=== PATIENT | female | born 1960 | race Caucasian/White ===

== ENCOUNTER → 2017-09-08 | Outpatient (CLI) | payer BC ==
[~2017-09-08] MED LIST: ALBU2.5V36 IH; CHOL200025 PO; ESOM40CA42 PO; ESTR0.5T18 PO; ESTR1PAT3 TD; ETAN50PE3 SQ; GLUCOSAMINE PO; HYDR-3083 PO; HYDR-4309 PO; IOPAMIDOL 76% 75 ML INFUS BTL 75 ML ONE; LEFL20TA6 PO; LOR5/325 PO; LOSA-51 PO; LOSA100T67 PO; LOSA25TA50 PO; MAGN250T34 PO; MULT-1335 PO; NS 0.9% 20 ML SDV 60 ML ONE; PRED20TA6 PO; VITA150T2 PO; ZINC10LO9 PO; ZINC50TA43 PO; [UNRECOGNIZED DRUG - CODE] PO; [UNRECOGNIZED DRUG - OTHER]; [UNRECOGNIZED DRUG - OTHER]
--- NOTE | 2017-09-08 10:19 | RADIOLOGY IMAGING REPORT ---
FACILITY: [facility] PATIENT NAME: Monica Amato : 1960 MR: [id number] V: [id number] EXAM DATE: ORDERING PHYSICIAN: YING LE TECHNOLOGIST: [place] [facility] [place] Monica Amato : 1960 Visit/Account:[id number] Date of Sevice: 09/08/2017 ABDOMEN/PELVIS W/WO CONTRAST HISTORY: Groin and epigastric pain TECHNIQUE: Axial images acquired through the abdomen/pelvis both with and without IV contrast.. Alejandra nal and sagittal reformatting also performed. Dose Lowering Technique One of the following dose optimization techniques was utilized in the performance of this exam: Autom ated exposure control; adjustment of the mA and/or kV according to the patient's size; or use of an i terative reconstruction technique. Specific details can be referenced in the facility's radiology C T exam operational policy. CONTRAST: 75 mL Isovue-370 COMPARISON: March 26, 2016 FINDINGS: Visualized lung bases: There is a 2 mm noncalcified nodule inferior aspect right middle lobe best se en on image one series 5 is a 3 mm noncalcified intrafissural nodule abutting the minor fissure on th e right best seen on image eight there is a 5 mm noncalcified nodule medial aspect of the right lower lobe best seen on image 20. There is a 3 mm noncalcified nodule posterior aspect the left lower lob e best seen on image 52 Hepatobiliary: There is diffuse hepatic steatosis and a small area of focal fatty sparing adjacent t o the falciform ligament Spleen: Negative. Adrenals: Negative. Pancreas: Negative. Kidneys ureters and bladder: Negative. Genitalia: Uterus not identified GI: Negative. Vessels/spaces/nodes: Negative. Bones/soft tissues: There Is a small umbilical hernia containing fat. There is also a ventral hernia in the midline of the upper abdomen containing fat. The hernia opening measures 3.5 cm in diameter Additional findings: None pertinent. IMPRESSION: There is a small umbilical hernia containing fat There is a ventral hernia in the midline of the upper abdomen also containing fat with the hernia ope chadwick measuring 3.5 cm in diameter Diffuse hepatic steatosis Several noncalcified pulmonary nodules measuring up to 5 mm the current Fleischner Society recommenda tions are as follows For multiple nodules measuring less than 6 mm, in a low risk patient (minimal or absent smoking history, no history of malignancy), no routine followup is recommended. In a high ris k patient (smoking or malignancy history), optional 12 month followup can be obtained. Report Dictated By: Nikky Zuniga MD at 09/08/2017 10:01 AM Report E-Signed By: Nikky Zuniga MD at 09/08/2017 10:14 AM WSN:[email or web address]
== END ==
LOC: CT 06:54
PROVIDERS: ATTEND Nurse Practitioner Family
DX: K42.9 Umbilical hernia without obstruction or gangrene (principal); K43.9 Ventral hernia without obstruction or gangrene; K76.0 Fatty (change of) liver, not elsewhere classified; R91.8 Other nonspecific abnormal finding of lung field
CPT/HCPCS: 74178; J7050; Q9967

== ENCOUNTER → 2017-09-22 | Outpatient (CLI) | payer BC ==
[~2017-09-22] MED LIST changes: +NS 0.9% 20 ML SDV 40 ML ONE; -NS 0.9% 20 ML SDV 60 ML ONE
--- NOTE | 2017-09-22 15:32 | RADIOLOGY IMAGING REPORT ---
FACILITY: [facility] - [place] PATIENT NAME: Monica Amato : 1960 MR: [id number] V: [id number] EXAM DATE: ORDERING PHYSICIAN: YING LE TECHNOLOGIST: Location: [facility] - [place] Patient: Monica Amato : 1960 Visit/Account:[id number] Date of Sevice: 09/22/2017 CHEST W CONTRAST History: Multiple pulmonary nodules, history of melanoma TECHNIQUE: Contiguous axial images were performed through the chest to the level of the adrenal gla nds following the administration of IV contrast. Coronal and sagittal reformatting was also perform ed. Dose Lowering Technique One of the following dose optimization techniques was utilized in the performance of this exam: Autom ated exposure control; adjustment of the mA and/or kV according to the patient's size; or use of an i terative reconstruction technique. Specific details can be referenced in the facility's radiology C T exam operational policy. Contrast: 75 mL Isovue-370 COMPARISON STUDIES: CT abdomen and pelvis September 08, 2017. Lungs / Pleura: There Is a 2 mm calcified nodule anterior aspect right upper lobe best seen on image 26 of series 3. There are several intrafissural nodules abutting the minor fissure on the right measuring up to 4 mm. the previously noted 5 mm noncalcified nodule medial aspect the right lower lobe appears smaller now measuring 3 mm and is best seen on image 48. There is a 3 mm nodule posterior aspect left lower lobe best seen on image 61. there is a 4 mm calcified nodule posterior medial left lower lobe best seen on image 64. No evidence of pleural effusions Mediastinum/nodes: negative. Heart and vessels: negative. Musculoskeletal / Body wall: Spondylotic changes of the thoracic spine. Incompletely imaged are po stsurgical changes of the cervical spine Upper abdomen: Diffuse hepatic steatosis IMPRESSION: For multiple pulmonary nodules as described above. Some of these appear to be calcified there for th e noncalcified nodules could represent noncalcified granulomas. Metastatic disease not entirely excl uded given the clinical history of melanoma. The previously noted 5 mm noncalcified nodule in the ri ght lower lobe appears smaller now measuring 3 mm. Maximum nodule size at this time was 4 mm. The c urrent Fleischner Society recommendations are as follows For multiple nodules measuring less than 6 m m, in a low risk patient (minimal or absent smoking history, no history of malignancy), no routine fo llowup is recommended. In a high risk patient (smoking or malignancy history), optional 12 month foll owup can be obtained. Diffuse hepatic steatosis Report Dictated By: Nikky Zuniga MD at 09/22/2017 3:18 PM Report E-Signed By: Nikky Znuiga MD at 09/22/2017 3:28 PM WSN:[email or web address]
== END ==
LOC: CT 01:54
PROVIDERS: ATTEND Nurse Practitioner Family
DX: R91.8 Other nonspecific abnormal finding of lung field (principal); K76.0 Fatty (change of) liver, not elsewhere classified
CPT/HCPCS: 71260; J7050; Q9967

== ENCOUNTER 2017-10-22 01:39 | Observation (INO) | payer BC ==
[2017-10-19 08:59] LABS: PLATELET COUNT, AUTOMATED 298 K/uL (150-450)
--- NOTE | 2017-10-19 09:05 | EKG ---
FACILITY: [facility] PATIENT NAME: KALYAN MONTGOMERY : [id number] MR: [id number] V: [id number] EXAM DATE: ORDERING PHYSICIAN: TEE ESTRELLA TECHNOLOGIST: YARELIS Samaniego Reason : PRE-OP Blood Pressure : / mmHG Vent. Rate : 061 BPM Atrial Rate : 061 BPM P-R Int : 158 ms QRS Dur : 100 ms QT Int : 426 ms P-R-T Axes : 052 037 055 degrees QTc Int : 428 ms Normal sinus rhythm Normal ECG When compared with ECG of 24-OCT-2014 09:25, No significant change was found Confirmed by JOHANA HEWITT ([id number]) on 10/20/2017 4:07:58 AM Referred By: JULIUS Confirmed By:JOHANA HEWITT
--- NOTE | 2017-10-19 11:38 | RADIOLOGY IMAGING REPORT ---
FACILITY: [facility] - [place] PATIENT NAME: Monica Amato : 1960 MR: [id number] V: [id number] EXAM DATE: ORDERING PHYSICIAN: JOHANA MADRID TECHNOLOGIST: Location: [facility] - [place] Patient: Monica Amato : 1960 Visit/Account:[id number] Date of Sevice: 10/19/2017 Exam type: CERVICAL SPINE 2 OR 3 VIEW History: Rheumatoid arthritis, preop Comparison: None. Findings: Neutral, flexion and extension lateral views of cervical spine reveal no abnormal motion at C1-2. Th ere are postsurgical changes from anterior fusion at C4-5 and and C5-6. There is moderate disc space narrowing at C6-7 IMPRESSION: 1. No abnormal motion identified at C1-2 Report Dictated By: Nikky Zuniga MD at 10/19/2017 11:32 AM Report E-Signed By: Nikky Zuniga MD at 10/19/2017 11:34 AM WSN:[email or web address]
[~2017-10-22] VITALS: Ht 165.1 cm; Wt 90.3 kg
[2017-10-22] VITALS (14 sets, daily range): BP systolic 101–161; BP diastolic 68–109
[~2017-10-22 01:39] MED LIST changes: -IOPAMIDOL 76% 75 ML INFUS BTL 75 ML ONE; -NS 0.9% 20 ML SDV 40 ML ONE
[2017-10-22] MEDS ORDERED: ROPIVACAINE 0.5% 20 ML VIAL ONE (07:23)
[2017-10-22] MEDS ORDERED: ceFAZolin(*) 2GM/D5W 50ML 50 ML IVPB ONE (09:15)
[2017-10-22] MEDS ORDERED: NORMOSOL R SOLN(*) 1000 ML BAG 1,000 ML IV PRN (09:15)
[2017-10-22] MEDS ORDERED: LIDOCAINE/SOD BICARB 8.4% SYR ID ONE (09:15)
[2017-10-22] MEDS ORDERED: MIDAZOLAM 2 MG/2 ML VIAL IVP PRN (09:15)
[2017-10-22] MEDS ORDERED: fentaNYL CITR 100 MCG/2 ML AMP ONE ×3 (11:58→15:28)
[2017-10-22] MEDS ORDERED: LIDOCAINE MPF 1% 5 ML VIAL ONE (12:00)
[2017-10-22] MEDS ORDERED: ROCURONIUM BROM 10 MG/ML 10 ML ONE (12:00)
[2017-10-22] MEDS ORDERED: ONDANSETRON 4 MG/2 ML VIAL ONE (12:00)
[2017-10-22] MEDS ORDERED: PROPOFOL EMUL(*) 10MG/ML 20 ML 20 ML ONE (12:00)
[2017-10-22] MEDS ORDERED: DEXAMETHASONE SOD PHOS 10MG/ML ONE (12:00)
[2017-10-22] MEDS ORDERED: GLYCOPYRROLATE 0.2 MG/ML SDV ONE (12:45)
[2017-10-22] MEDS ORDERED: SUGAMMADEX SOD 500 MG/5 ML SDV ONE (14:52)
[2017-10-22] MEDS ORDERED: HYDROmorphone HCL 2 MG/ML SDV ONE (15:30)
[2017-10-22] MEDS ORDERED: NS(*) 0.9% 1000 ML BAG 1,000 ML IV PRN (15:40)
[2017-10-22] MEDS ORDERED: MORPHINE 2 MG/ML SYR IVP PRN (15:40)
[2017-10-22] MEDS ORDERED: ONDANSETRON 4 MG/2 ML VIAL IVP PRN (15:40)
[2017-10-22] MEDS ORDERED: FLUSH 10 ML SYR IVP PRN (15:40)
--- NOTE | 2017-10-22 15:40 | Post Operative Progress Note ---
Post Operative Progress Note Date: Oct 22, 2017 Time: 15:26 Surgeon: Emily Dictation number: [id number] Anesthesia: GETA by Dr. Ramos Pre-Op Diagnosis: Ventral Hernia Umbilical Hernia Post-Op Diagnosis: CHRIS Findings: C/W dx Procedure(s): Robotic UH and VH repair, both with mesh Specimen Removed:(May be N/A): None Complications: None Fluids: See anesthesia record Estimated Blood Loss: Minimal Date OP Note Dictated: Oct 22, 2017 Time OP Note Dictated: 15:28 JOHANA MADRID MD Oct 22, 2017 15:40
[2017-10-22] MEDS ORDERED: KETOROLAC 30 MG/ML VIAL ONE (15:46)
[2017-10-22] MEDS ORDERED: ACETAMINOPHEN(*)1000 MG/100 ML 100 ML IVPB ONE ×2 (15:46→16:00)
[2017-10-22] MEDS ORDERED: HYDROmorphone PCA 6 MG/30 ML IV PRN (15:50)
[2017-10-22] MEDS ORDERED: NALOXONE HCL 0.4 MG/ML VIAL IVP PRN (15:50)
[2017-10-22] MEDS ORDERED: KETOROLAC 30 MG/ML VIAL IVP ONE (16:00)
[2017-10-22] MEDS ORDERED: PROMETHAZINE 25 MG/ML 1 ML AMP ONE (16:02)
[2017-10-22] MEDS: NS(*) 0.9% 1000 ML BAG 1,000 ML IV SCH ×2 (18:15→21:43)
[2017-10-22] MEDS: cefOXitin/DEX(*) 1GM/50ML PREM 50 ML IVPB SCH (18:39)
[2017-10-22] MEDS: KETOROLAC 30 MG/ML VIAL IVP SCH (20:45)
[2017-10-22] MEDS: FAMOTIDINE 20 MG TAB PO SCH (20:45)
[2017-10-22] MEDS: DOCUSATE SODIUM 100 MG CAP PO SCH (20:45)
--- NOTE | 2017-10-22 20:58 | OPERATIVE REPORT 1 ---
EVENT DATE: October 22, 2017 SURGEON: Tl Diaz MD ANESTHESIOLOGIST: Karthik Ramos MD ANESTHESIA: General endotracheal anesthesia. PREOPERATIVE DIAGNOSES 1. Ventral hernia. 2. Umbilical hernia. POSTOPERATIVE DIAGNOSES 1. Ventral hernia. 2. Umbilical hernia. PROCEDURES PERFORMED Robotic umbilical and ventral hernia repair, both with mesh. COMPLICATIONS None. CONDITION Stable. BLOOD LOSS Minimal. INDICATIONS This is a 57-year-old female who was referred to my office with an umbilical hernia and a ventral hernia, both seen on CT scan. She was requesting to have them repaired. DESCRIPTION OF PROCEDURE The patient was brought to the operating room and placed supine on the operating table. General endotracheal anesthesia was administered. Her abdomen was prepped and draped in a sterile fashion. A timeout was completed. I injected the left subcostal skin with 0.5% ropivacaine plain and made a transverse 8 mm incision. I then used a Veress needle, inserted it into the abdomen, and insufflated the abdomen to a pressure of 15 mmHg. I used an 8 mm robotic optical trocar with a 5 mm camera in it and inserted the first trocar into the insufflated abdomen without problems. I then installed the robotic camera and inserted two more 8 mm ports on the left side, one in the mid abdomen and one down in the left lower quadrant. I then docked the robot and then installed the instruments. I identified the hernias and divided the peritoneum around each of the hernias, stripped the peritoneum and the hernia contents out of the hernias, and cleaned off the fascia all the way around. I then closed each defect with V-Loc absorbable sutures and then placed C-QUR omega-3 coated mesh, a 7 cm round mesh around the epigastric ventral hernia and sewed this into place with V-Loc running sutures, and then a 2.5 cm round piece of C-QUR omega-3 coated mesh on the umbilical hernia site and sewed this in with V-Loc. I then reapproximated the peritoneum overlying the mesh on both of these. I then removed the robotic instruments, undocked the robot, desufflated the abdomen, and removed the ports. I then closed the skin at each port site with a 4-0 Monocryl subcuticular suture. Each incision was then covered with Dermabond. The patient was awakened and extubated in the operating room and transported to the recovery room in stable condition having tolerated the procedure without any apparent problems. MTDD
[2017-10-22] MEDS ORDERED: ACETAMINOPHEN(*)1000 MG/100 ML 100 ML IVPB SCH (22:00)
[2017-10-22] MEDS: ACETAMINOPHEN(*)1000 MG/100 ML 100 ML IVPB SCH (23:38)
[2017-10-23] VITALS: BP 108/69
[2017-10-23] MEDS: KETOROLAC 30 MG/ML VIAL IVP SCH ×3 (03:50→15:41)
[2017-10-23] MEDS: cefOXitin/DEX(*) 1GM/50ML PREM 50 ML IVPB SCH ×3 (03:51→20:18)
[2017-10-23] MEDS: ACETAMINOPHEN(*)1000 MG/100 ML 100 ML IVPB SCH ×2 (06:17→12:07)
[2017-10-23 07:49] VITALS: BP 148/89
[2017-10-23] MEDS ORDERED: NS(*) 0.9% 1000 ML BAG 1,000 ML IV SCH (08:00)
--- NOTE | 2017-10-23 08:03 | General Surgery Progress Note ---
Subjective Progress Notes Subjective Feeling better than yesterday. Still too much pain to tolerate PO meds. Was up and walking the halls overnight. Physical Exam Vital Signs Date Time Temp Pulse Resp B/P (MAP) Pulse Ox O2 Delivery O2 Flow Rate FiO2 10/23/17 07:49 98.2 62 16 148/89 (108) 98 Nasal Cannula 1.0 General Appearance: Alert, Awake, No Acute Distress, Afebrile GI: Other (Soft, diffuse expected postop TTP, incisions all look good.) Extremities: Warm, Perfused Result Diagram: 10/19/17 0852 Assessment and Plan Problems: (1) Ventral hernia Status: Chronic Assessment & Plan: 10/23/17: POD#1 s/p robotic UH/VH repair with mesh x2. Doing well. Still with a lot of pain. Will continue current pain control regimen. Convert to PO when pain decreases. (2) Umbilical hernia Status: Chronic Condition Stable. Time Spent: < 30 min Exam Sepsis Risk: No Definite Risk Problem Qualifiers (1) Ventral hernia: Obstruction and gangrene presence: without obstruction or gangrene Qualified Codes: K43.9 - Ventral hernia without obstruction or gangrene (2) Umbilical hernia: Obstruction and gangrene presence: without obstruction or gangrene Qualified Codes: K42.9 - Umbilical hernia without obstruction or gangrene JOHANA MADRID MD Oct 23, 2017 08:03
[2017-10-23] MEDS: LOSARTAN POTASSIUM 50 MG TAB PO SCH (08:47)
[2017-10-23] MEDS: ESTRADIOL 0.5 MG TABLET PO SCH (08:47)
[2017-10-23] MEDS: FAMOTIDINE 20 MG TAB PO SCH ×2 (08:47→20:17)
[2017-10-23] MEDS: DOCUSATE SODIUM 100 MG CAP PO SCH ×2 (08:47→20:17)
[2017-10-23 10:30] VITALS: BP 149/86
[2017-10-23 15:00] VITALS: BP 150/88
[2017-10-23 15:47] VITALS: Ht 165.1 cm; Wt 90.3 kg
[2017-10-23] MEDS: IBUPROFEN 200 MG TAB PO PRN (17:48)
[2017-10-23 19:58] VITALS: BP 166/87
[2017-10-23 23:19] VITALS: BP 133/84
[2017-10-24] MEDS: IBUPROFEN 200 MG TAB PO PRN ×2 (00:49→07:07)
[2017-10-24 03:34] VITALS: BP 150/88
[2017-10-24] MEDS: cefOXitin/DEX(*) 1GM/50ML PREM 50 ML IVPB SCH (03:43)
[2017-10-24 07:13] VITALS: BP 145/85
[2017-10-24] MEDS: LOSARTAN POTASSIUM 50 MG TAB PO SCH (09:23)
[2017-10-24] MEDS: DOCUSATE SODIUM 100 MG CAP PO SCH (09:23)
[2017-10-24] MEDS: FAMOTIDINE 20 MG TAB PO SCH (09:23)
[2017-10-24] MEDS: ESTRADIOL 0.5 MG TABLET PO SCH (09:23)
[2017-10-24] MEDS ORDERED: PER PO (09:34)
[2017-10-24] MEDS ORDERED: DOCU-202 PO (09:34)
--- NOTE | 2017-10-24 09:37 | Short(Outpt) Discharge Summary ---
Discharge Summary Reason for Hosp/Final Diag: (1) Ventral hernia Status: Chronic Hospital Course & Plan: 10/23/17: POD#1 s/p robotic UH/VH repair with mesh x2. Doing well. Still with a lot of pain. Will continue current pain control regimen. Convert to PO when pain decreases. 10/24/17: POD#2. Doing much better. Pain controlled with PO meds that we converted her to last evening. Pt wishes to go home. Will d/c to home. (2) Umbilical hernia Status: Chronic Departure Discharge to: Home, Self Care Discharge Instructions Home Meds Active Scripts Oxycodone/Acetaminophen (OXYCODONE/ACETAMINOPHEN 5MG/325 MG) 5 Mg/325 Mg Tab, 1- 2 TAB PO Q4H Y for PAIN, #40 TAB 0 Refills Prov:JOHANA MADRID MD 10/24/17 Docusate Sodium (DOCUSATE SODIUM) 100 Mg Capsule, 1 CAP PO BID, #30 CAPSULE 0 Refills Prov:JOHANA MADRID MD 10/24/17 Esomeprazole Magnesium (NEXIUM) 40 Mg Capsule.dr, 1 TAB PO QDAY, #60 CAP 0 Refills Take 1 tablet 1/2 hour before breakfast Prov:JOHANA MADRID MD 10/13/17 Reported Medications Losartan Potassium (LOSARTAN POTASSIUM) 100 Mg Tablet, 100 MG PO QDAY 11/05/16 Etanercept (ENBREL) 50 Mg/1 Ml Pen.injctr, 50 MG SQ QWEEKF 04/23/16 Estradiol (ESTRACE) 0.5 Mg Tablet, 0.5 MG PO 05/16/14 Follow up Referrals: General Surgery - 11/04/17 @ Surgery, General with Johana Madrid Md You have a follow up appointment scheduled with Dr. Madrid on 11/04/17, at 2: 15pm. Diet: Regular Activity: No Heavy Lifting Special Instructions: You may shower or bath as desired. Do not perform any activity that involves straining or lifting more than 10 pounds for 6 weeks after surgery. Problem Qualifiers (1) Ventral hernia: Obstruction and gangrene presence: without obstruction or gangrene Qualified Codes: K43.9 - Ventral hernia without obstruction or gangrene (2) Umbilical hernia: Obstruction and gangrene presence: without obstruction or gangrene Qualified Codes: K42.9 - Umbilical hernia without obstruction or gangrene JOHANA MADRID MD Oct 24, 2017 09:37
== END 2017-10-24 09:32 | disposition home or self-care (01) ==
LOC: OR 01:39 → MED 16:35
PROVIDERS: ADMIT Surgery; ATTEND Surgery
DX: K43.9 Ventral hernia without obstruction or gangrene (principal); K42.9 Umbilical hernia without obstruction or gangrene
CPT/HCPCS: 36415; 49652; 72040; 85025; 93005; C1781; G0378; J0131; J0694; J1100; J1170; J1885; J2001; J2250; J2405; J2550; J2704; J2795; J3010; J3490; J7030; S2900; J0690

== ENCOUNTER → 2018-06-11 | Outpatient (CLI) | payer BC ==
[2017-10-23 15:47] VITALS: BMI 33.1
[~2018-06-11] MED LIST changes: +DOCU-202 PO; -HYDR-4309 PO; +HYDR-653 PO; -LOSA100T67 PO; +LOSA100T69 PO; -LOSA25TA50 PO; +LOSA25TA52 PO; +PER PO
--- NOTE | 2018-06-11 17:35 | RADIOLOGY IMAGING REPORT ---
FACILITY: PATIENT NAME: Monica Amato : 1960 MR: [id number] V: [id number] EXAM DATE: ORDERING PHYSICIAN: YING LE TECHNOLOGIST: Location: [facility] - [place] Patient: Monica Amato : 1960 Visit/Account:[id number] Date of Sevice: 06/11/2018 EXAMINATION: ARTERIAL LOWER EXT RIGHT HISTORY: Numbness. COMPARISON: None. TECHNIQUE: Color-flow and spectral waveforms were assessed on the right lower extremity arteries. FINDINGS: RIGHT LOWER EXTREMITY: On the color-flow images there is no significant focal stenosis. Mild calcified plaque is seen at th e dorsalis pedis without significant stenosis. There are triphasic or biphasic waveforms throughout t he right lower extremity. Peak systolic velocities in the right lower extremity in centimeters per second are as follows: Common femoral 93 cm\s, triphasic Proximal superficial femoral 59 cm\s, triphasic Mid superficial femoral 77 cm\s, triphasic Distal superficial femoral 68 cm\s, triphasic Proximal popliteal 37 cm\s, triphasic Distal popliteal 45 cm\s, biphasic Anterior tibial 50 cm\s, biphasic Proximal posterior tibial 47 cm\s, biphasic Mid posterior tibial 56 cm\s, biphasic Distal posterior tibial 55 cm\s, biphasic Peroneal 33 cm\s, biphasic Dorsalis pedis 74 cm\s, biphasic IMPRESSION: 1. No significant arterial stenosis in the right lower extremity arteries. Report Dictated By: Kai Braden MD at 06/11/2018 5:21 PM Report E-Signed By: Kai Braden MD at 06/11/2018 5:32 PM WSN:[id number]
== END ==
LOC: US 15:32
PROVIDERS: ATTEND Nurse Practitioner Family
DX: R10.2 Pelvic and perineal pain (principal); M79.604 Pain in right leg

== ENCOUNTER 2018-06-22 10:44 | Outpatient (RCR) | payer BC ==
[2017-10-23 15:47] VITALS: BMI 33.1
[2018-06-28] MEDS ORDERED: IOPAMIDOL 76% 75 ML INFUS BTL 75 ML ONE (07:57)
--- NOTE | 2018-06-28 08:46 | RADIOLOGY IMAGING REPORT ---
FACILITY: [facility] - [place] PATIENT NAME: Monica Amato : 1960 MR: [id number] V: [id number] EXAM DATE: ORDERING PHYSICIAN: YING LE TECHNOLOGIST: Location: [facility] [place] Patient: Monica Amato : 1960 Visit/Account:[id number] Date of Sevice: 06/28/2018 EXAMINATION: Abdomen and pelvis CT with contrast HISTORY: Right groin pain, leg pain, history of hysterectomy, hernia repair. TECHNIQUE: CT was performed through the abdomen and pelvis following injection of iodinated intrave nous contrast. Sagittal and coronal MPR reformatted images were generated. 75 mL isovue 370 injected . One of the following dose optimization techniques was utilized in the performance of this exam: autom ated exposure control; adjustment of the mA and/or kV according to patient size; or use of iterative reconstruction technique. Specific details can be referenced in the facility's radiology CT exam ope rational policy. COMPARISON: September 08, 2017 FINDINGS: Lower chest: Unchanged approximate 3 mm right middle lobe nodule, axial image two series 3. Addition al 4 mm unchanged left lower lobe nodule, image 16 series 3. Spleen: Normal. Adrenal glands: Normal. Pancreas: Normal. Kidneys: Normal. Gallbladder: Normal. Liver: Unchanged diffuse hepatic steatosis. Vessels: Normal for age. Lymph node assessment: Normal. Bowel including small bowel, colon and appendix: Normal stomach, normal small bowel, appendix not vis ualized, a few colonic diverticula without diverticulitis, otherwise unremarkable colon. Peritoneum / retroperitoneum / mesentery: Normal. Pelvic structures: Normal bladder, absent uterus and normal rectum. No pelvic fluid or adenopathy . Body wall: Previously seen midline ventral fat-containing hernia is no longer present. Previously se en fat-containing umbilical hernia is no longer present. Musculoskeletal: No fracture or osseous destruction. IMPRESSION: 1. Interval surgical repair of the previously seen fat-containing midline ventral hernia and fat-con taining umbilical hernia. 2. No apparent acute finding. 3. Minimal colonic diverticulosis without diverticulitis. 4. Unchanged hepatic steatosis. 5. A few unchanged sub-5 mm pulmonary nodules which are statistically postinflammatory. Report Dictated By: Aram Reyes MD at 06/28/2018 8:29 AM Report E-Signed By: Aram Reyes MD at 06/28/2018 8:42 AM VENKATAN:MARQUISE
== END 2018-06-28 18:00 | disposition home or self-care (01) ==
LOC: CT 10:44
PROVIDERS: ATTEND Nurse Practitioner Family
DX: R10.2 Pelvic and perineal pain (principal); M79.604 Pain in right leg
CPT/HCPCS: 36415; 74177; 82565; Q9967

== ENCOUNTER → 2018-08-23 | Outpatient (CLI) | payer BC ==
[2017-10-23 15:47] VITALS: BMI 33.1
[~2018-08-23] MED LIST changes: -LOSA100T69 PO; +LOSA100T75 PO; -LOSA25TA52 PO; +LOSA25TA57 PO
--- NOTE | 2018-08-23 12:10 | RADIOLOGY IMAGING REPORT ---
FACILITY: [facility] PATIENT NAME: Monica Amato : 1960 MR: [id number] V: [id number] EXAM DATE: ORDERING PHYSICIAN: YING LE TECHNOLOGIST: Location: [facility] - [place] Patient: Monica Amato : 1960 Visit/Account:[id number] Date of Sevice: 08/23/2018 Technique: ANKLE 3 VIEW MIN RIGHT HISTORY: Right ankle injury Comparison studies: None FINDINGS: There is no acute fracture. The alignment of the ankle mortise is maintained. No ankle tanesha int effusion. IMPRESSION: 1. No acute osseous process. Report Dictated By: Jaxon Harris DO at 08/23/2018 12:05 PM Report E-Signed By: Jaxon Harris DO at 08/23/2018 12:06 PM WSN:[email or web address]
== END ==
LOC: RAD 11:05
PROVIDERS: ATTEND Nurse Practitioner Family
DX: S93.431A Sprain of tibiofibular ligament of right ankle, initial encounter (principal)

== ENCOUNTER → 2018-10-26 | Outpatient (CLI) | payer BC ==
[2017-10-23 15:47] VITALS: BMI 33.1
[2018-10-26 10:49] LABS: PLATELET COUNT, AUTOMATED 354 K/uL (150-450)
== END ==
LOC: LAB 10:34
PROVIDERS: ATTEND Nurse Practitioner Family
DX: E87.8 Other disorders of electrolyte and fluid balance, not elsewhere classified (principal)
CPT/HCPCS: 36415; 82040; 82247; 82310; 82374; 82435; 82565; 82947; 84075; 84132; 84155; 84295; 84450; 84460; 84520; 85025

== ENCOUNTER → 2018-12-15 | Outpatient (CLI) | payer BC ==
[2017-10-23 15:47] VITALS: BMI 33.1
[2018-12-15 12:27] LABS: PLATELET COUNT, AUTOMATED 361 K/uL (150-450)
--- NOTE | 2018-12-15 14:30 | RADIOLOGY IMAGING REPORT ---
FACILITY: [facility] [place] PATIENT NAME: Monica Amato : 1960 MR: [id number] V: [id number] EXAM DATE: ORDERING PHYSICIAN: YING LE TECHNOLOGIST: Location: [facility] [place] Patient: Monica Amato : 1960 Visit/Account:[id number] Date of Sevice: 12/15/2018 EXAMINATION: MRI Lumbar spine without intravenous contrast HISTORY: Low back pain. COMPARISON: None available. TECHNIQUE: Multi-planar, multi-sequence lumbar spine MRI was performed without intravenous contrast administration. FINDINGS: Alignment: Normal. Vertebral marrow signal: Negative. Distal thoracic cord: Negative. Conus: negative, terminates at the mid to lower L1 vertebral body Cauda equina: Negative. Paravertebral soft tissues: Negative. Visualized abdominal and pelvic structures: Negative. Disc Spaces: Lower thoracic spine: Negative. L1-2: Negative. L2-3: Negative. L3-4: Minimal disc bulge and facet hypertrophy with no significant stenosis. L4-5: Mild circumferential disc bulge with left foraminal annular fissure. Bilateral facet hypertrop hy with bilateral facet joint effusions. Mild ligamentum flavum thickening. No significant spinal c anal stenosis. Mild bilateral neural foraminal stenosis. L5-S1: Small broad-based posterior disc protrusion, eccentric to the left. Mild facet hypertrophy. No significant stenosis. IMPRESSION: Mild multilevel lumbar spondylosis. Report Dictated By: Chandler Ramirez MD at 12/15/2018 2:22 PM Report E-Signed By: Chandler Ramirez MD at 12/15/2018 2:25 PM WSN:[id number]
== END ==
LOC: MRI 06:58
PROVIDERS: ATTEND Nurse Practitioner Family
DX: M46.96 Unspecified inflammatory spondylopathy, lumbar region (principal); M47.896 Other spondylosis, lumbar region
CPT/HCPCS: 36415; 72148; 82040; 82247; 82310; 82374; 82435; 82565; 82947; 84075; 84132; 84155; 84295; 84443; 84450; 84460; 84520; 85025

== ENCOUNTER → 2018-12-24 | Outpatient (CLI) | payer BC ==
[2017-10-23 15:47] VITALS: BMI 33.1
--- NOTE | 2018-12-24 10:37 | RADIOLOGY IMAGING REPORT ---
FACILITY: [facility] [place] PATIENT NAME: Monica Amato : 1960 MR: [id number] V: [id number] EXAM DATE: ORDERING PHYSICIAN: YING LE TECHNOLOGIST: Location: [facility] Patient: Monica Amato : 1960 Visit/Account:[id number] Date of Sevice: 12/24/2018 GALLBLADDER ADDITIONAL PERTINENT HISTORY: Abnormal liver function tests with deficiency of iron COMPARISON STUDIES: None. FINDINGS: Liver: Increased echogenicity within the liver parenchyma compatible with underlying fatty infiltrati on of the liver. No focal lesion within the liver. Gallbladder: Negative. Common duct: Normal. Measuring 4.1 mm. Pancreas: Negative. Right kidney: Negative, measuring 9.1 cm in length. Proximal IVC/Aorta: Negative. Ascites: Negative. IMPRESSION: 1. Fatty infiltration of the liver. 2. No acute intra-abdominal process. Report Dictated By: Dipak Mota MD at 12/24/2018 10:30 AM Report E-Signed By: Dipak Mota MD at 12/24/2018 10:32 AM WSN:[email or web address]
== END ==
LOC: US 02:37
PROVIDERS: ATTEND Nurse Practitioner Family
DX: K76.89 Other specified diseases of liver (principal); E83.10 Disorder of iron metabolism, unspecified; R10.10 Upper abdominal pain, unspecified
CPT/HCPCS: 36415; 76705; 81256; 82150; 82728; 83690

== ENCOUNTER → 2019-01-03 | Outpatient (CLI) | payer BC ==
[2017-10-23 15:47] VITALS: BMI 33.1
[~2019-01-03] MED LIST changes: +IOPAMIDOL 76% 100 ML INFUS BTL 100 ML ONE; +SINCALIDE 5 MCG VIAL INJ ONE; +WATER FOR INJ,STERILE 20 ML 20 ML ONE
--- NOTE | 2019-01-03 11:15 | RADIOLOGY IMAGING REPORT ---
[place] [facility] [place] Monica Amato : 1960 MR: [id number] V: [id number] EXAM DATE: ORDERING PHYSICIAN: JOHANA MADRID TECHNOLOGIST: Location: [facility] [place]: Monica Amato : 1960 Visit/Account:[id number] Date of Sevice: 01/03/2019 CT ABDOMEN WITH AND WITHOUT CONTRAST CLINICAL INFORMATION: Hepatitis C TECHNIQUE: Axial CT images were obtained through the abdomen before and after injection of nonionic iodinated intravenous contrast. Reformatted coronal and sagittal images were also obtained. Pre cont rast and delayed images were obtained. Dose Lowering Technique One of the following dose optimization techniques was utilized in the performance of this exam: Autom ated exposure control; adjustment of the mA and/or kV according to the patient's size; or use of an i terative reconstruction technique. Specific details can be referenced in the facility's radiology C T exam operational policy. CONTRAST: 75ml of IV Isovue-370 contrast. COMPARISON: CT abdomen and pelvis June 28, 2018 MRI upper quadrant ultrasound December 24, 2018. FINDINGS: Lower lung campuzano: 4 mm noncalcified nodule posterior aspect left lower lobe appears unchanged best a ppreciated on image 24 series 5. The previously noted right middle lobe nodule was not included on t he study. Liver: There is severe diffuse hepatic steatosis with oblique an area of focal fatty sparing adjacent to the gallbladder Biliary: Gallbladder appears unremarkable as well as the intra and extra hepatic biliary system. Pancreas: Normal appearance. Spleen: Normal appearance. Adrenal glands: Unremarkable. Kidneys / retroperitoneum: No evidence of nephrolithiasis or hydronephrosis Bowel / peritoneum / mesenteries: The visualized small and large bowel appear unremarkable. Vessels: No significant atherosclerotic calcification seen throughout a nonaneurysmal abdominal aorta and branches. Musculoskeletal / Body wall: There mild spondylotic changes in the lower thoracic spine. There are p ostsurgical changes from a ventral hernia repair Lymph node assessment: No pathologic adenopathy identified. IMPRESSION: 1. There is severe diffuse hepatic steatosis with an area of focal fatty sparing adjacent to the gal lbladder. No demonstration of focal hepatic lesions 4 mm noncalcified nodule posterior aspect left lower lobe appears unchanged 2. 3. Report Dictated By: Nikky Zuniga MD at 01/03/2019 11:02 AM Report E-Signed By: Nikky Zuniga MD at 01/03/2019 11:11 AM WSN:[email or web address]
--- NOTE | 2019-01-03 15:31 | RADIOLOGY IMAGING REPORT ---
FACILITY: [facility] PATIENT NAME: Monica Amato : 1960 MR: [id number] V: [id number] EXAM DATE: ORDERING PHYSICIAN: JOHANA MADRID TECHNOLOGIST: Location: [facility] [place] Patient: Monica Amato : 1960 Visit/Account:[id number] Date of Sevice: 01/03/2019 NM HIDA SCAN HISTORY: Right upper quadrant pain postprandial bloating TECHNIQUE: 5.9 mCi Tc99m Hepatolite was injected intravenously. Multiple sequential gamma camera nichol ges of the abdomen were obtained for 30 minutes. At that time, Kinevac was injected intravenously and an additional 30 minutes of gamma camera imaging data was acquired. A computer-generated region of i nterest was placed around the gallbladder and time-activity curve for the gallbladder was derived. Th e gallbladder ejection fraction was calculated. COMPARISON: Gallbladder ultrasound December 24, 2018 FINDINGS: Liver uptake and excretion: Unremarkable. Time to appearance: Bile ducts: 6 minutes. Gallbladder: 15 minutes. Duodenum: 6 minutes. Duodenal-gastric reflux / extravasation: None. Post IV Kinevac: There was diminished contraction by the gallbladder Patient symptoms: None reported Ejection fraction = 14% (normal range >35%). IMPRESSION: Abnormally low gallbladder ejection fraction of 14% Report Dictated By: Nikky Zuniga MD at 01/03/2019 3:24 PM Report E-Signed By: Nikky Zuniga MD at 01/03/2019 3:26 PM WSN:[email or web address]
== END ==
LOC: CT 07:35
PROVIDERS: ATTEND Surgery
DX: K76.0 Fatty (change of) liver, not elsewhere classified (principal); R93.2 Abnormal findings on diagnostic imaging of liver and biliary tract
CPT/HCPCS: 74170; 78226; A9537; J2805; Q9967

== ENCOUNTER 2019-01-27 00:20 | Observation (INO) | payer BC ==
[2017-10-23 15:47] VITALS: Ht 167.6 cm; Wt 83.0 kg
[2019-01-25 16:20] LABS: INR 0.97
--- NOTE | 2019-01-25 18:18 | EKG ---
FACILITY: [facility] PATIENT NAME: KALYAN MONTGOMERY : [id number] MR: [id number] V: [id number] EXAM DATE: ORDERING PHYSICIAN: KOBE REY TECHNOLOGIST: MY Test Reason : PRE-OP Blood Pressure : / mmHG Vent. Rate : 070 BPM Atrial Rate : 070 BPM P-R Int : 134 ms QRS Dur : 102 ms QT Int : 408 ms P-R-T Axes : 059 031 034 degrees QTc Int : 440 ms Normal sinus rhythm Normal ECG When compared with ECG of 19-OCT-2017 08:57, No significant change was found Confirmed by FIONA DAVIS ([id number]) on 01/26/2019 1:00:02 AM Referred By: JULIUS Confirmed By:FIONA DAVIS
[~2019-01-27] VITALS: Ht 167.6 cm; Wt 83.0 kg
[2019-01-27] VITALS (19 sets, daily range): BP systolic 115–159; BP diastolic 75–108
[~2019-01-27 00:20] MED LIST changes: -IOPAMIDOL 76% 100 ML INFUS BTL 100 ML ONE; +MULT-1176 PO; -SINCALIDE 5 MCG VIAL INJ ONE; -WATER FOR INJ,STERILE 20 ML 20 ML ONE
[2019-01-27] MEDS: ACETAMINOPHEN 500 MG TAB PO ONE ×2 (06:32→06:49)
[2019-01-27] MEDS ORDERED: FAMOTIDINE 20 MG TAB PO ONE (06:40)
[2019-01-27] MEDS ORDERED: fentaNYL CITR 250 MCG/5 ML AMP ONE (06:46)
[2019-01-27] MEDS ORDERED: LIDOCAINE MPF 1% 5 ML VIAL ONE (06:47)
[2019-01-27] MEDS ORDERED: ONDANSETRON 4 MG/2 ML VIAL ONE (06:47)
[2019-01-27] MEDS ORDERED: DEXAMETHASONE SOD PHOS 10MG/ML ONE (06:47)
[2019-01-27] MEDS ORDERED: PROPOFOL EMUL(*) 10MG/ML 20 ML 20 ML ONE (06:47)
[2019-01-27] MEDS ORDERED: HALOPERIDOL LACT 5 MG/ML VIAL IM ONE (06:54)
[2019-01-27] MEDS ORDERED: MIDAZOLAM 2 MG/2 ML VIAL IVP PRN (07:00)
[2019-01-27] MEDS ORDERED: INDOCYANINE GREEN 25 MG VIAL IVP ONE ×2 (07:00→07:15)
[2019-01-27] MEDS ORDERED: LIDOCAINE/SOD BICARB 8.4% SYR ID ONE (07:00)
[2019-01-27] MEDS ORDERED: PREGABALIN 150 MG CAPSULE PO ONE (07:00)
[2019-01-27] MEDS ORDERED: NORMOSOL R SOLN(*) 1000 ML BAG 1,000 ML IV PRN (07:00)
[2019-01-27] MEDS ORDERED: ROPIVACAINE 0.5% 20 ML VIAL ONE (07:09)
[2019-01-27] MEDS ORDERED: AMPICILLIN/SULBACT (*) 3 GM VL 3 GM in NS(*) 0.9% 100 ML BAG 100 ML IVPB ONE (07:10)
[2019-01-27] MEDS ORDERED: IOPAMIDOL 61% 75 ML INFUS BTL 0 ML ONE (07:10)
[2019-01-27] MEDS ORDERED: KETAMINE HCL-NS 50 MG/5 ML SYR ONE (07:18)
[2019-01-27] MEDS ORDERED: NS 0.9% 20 ML SDV 20 ML ONE (07:22)
[2019-01-27] MEDS ORDERED: SUGAMMADEX SOD 200 MG/2 ML SDV ONE (09:01)
[2019-01-27] MEDS ORDERED: fentaNYL CITR 100 MCG/2 ML AMP ONE ×3 (09:37→10:10)
[2019-01-27] MEDS ORDERED: NS(*) 0.9% 1000 ML BAG 1,000 ML IV PRN (09:41)
[2019-01-27] MEDS ORDERED: ONDANSETRON 4 MG/2 ML VIAL IVP PRN (09:45)
[2019-01-27] MEDS ORDERED: FLUSH 10 ML SYR IVP PRN (09:45)
[2019-01-27] MEDS ORDERED: MORPHINE 2 MG/ML SYR IVP PRN (09:45)
--- NOTE | 2019-01-27 09:55 | Post Operative Progress Note ---
Post Operative Progress Note Date: Jan 27, 2019 Time: 09:47 Surgeon: Emily Dictation number: [id number] Anesthesia: GETA by Dr. Adams Pre-Op Diagnosis: Biliary colic Elevated transaminases Post-Op Diagnosis: CHRIS Findings: C/W dx Procedure(s): 1) Robotic adhesiolysis 2) Robotic liver wedge biopsy 3) Robotic cholecystectomy Specimen Removed:(May be N/A): 1) Liver wedge biopsy 2) GB and contents Complications: None Fluids: See anesthesia record Estimated Blood Loss: Minimal Date OP Note Dictated: Jan 27, 2019 Time OP Note Dictated: 09:48 JOHANA MADRID MD Jan 27, 2019 09:55
[2019-01-27] MEDS ORDERED: ESTR-35 PO (10:15)
--- NOTE | 2019-01-27 10:35 | OPERATIVE REPORT 1 ---
EVENT DATE: January 27, 2019 SURGEON: Tl Diaz MD ANESTHESIOLOGIST: Maninder Adams MD ANESTHESIA: General endotracheal. PREOPERATIVE DIAGNOSIS 1. Biliary colic. 2. Elevated transaminases. POSTOPERATIVE DIAGNOSIS 1. Biliary colic. 2. Elevated transaminases. PROCEDURE PERFORMED 1. Robotic adhesiolysis. 2. Robotic liver wedge biopsy. 3. Robotic cholecystectomy. COMPLICATIONS None. CONDITION Stable. ESTIMATED BLOOD LOSS Minimal. SPECIMENS 1. Liver wedge biopsy. 2. Gallbladder and contents. INDICATION This is a 58-year-old female who was referred to me with elevated transaminases. Imaging and workup appeared to be consistent with nonalcoholic steatohepatitis or nonalcoholic fatty liver disease. She was also having post prandial bloating and nausea and a right upper quadrant ultrasound was unremarkable, but a HIDA scan revealed a low ejection fraction of 14% consistent with biliary dyskinesia. She was requesting to have her gallbladder removed and a liver biopsy done at the same time. DESCRIPTION OF PROCEDURE The patient was brought to the operating room and placed supine on the operating table. General endotracheal anesthesia was administered and her abdomen was prepped and draped in sterile fashion. A timeout was completed and I injected the infraumbilical skin with 0.5% ropivacaine plain. I made a curvilinear smiley face stab incision in the infraumbilical rim, dissected down to the dermis and subcutaneous fat and then identified the midline fascia. I made a vertical incision in the midline fascia, grasped it and elevated it with Bo clamps and retracted the fascia towards the ceiling and then used blunt dissection to enter the peritoneal cavity. I then placed 2 interrupted 0 Vicryl sutures transversely through the vertical fascia defect and inserted a robotic 12 mm port through this wound and secured it into to place with the sutures. I insufflated the abdomen to a pressure of 15 mmHg and inserted the robotic camera and then under direct visualization, placed an 8 mm robotic port in the right mid abdomen and then noted some adhesions all along the midline from just below the umbilicus to up in the epigastrium, but I was ultimately able to get an 8 mm robotic port in the left upper quadrant and the anterior axillary line subcostal space and then another 8 mm port midway between the umbilical port and the far upper left port. Because of these adhesions, I put in a 5 mm port in the lateral mid abdomen about the anterior axillary line and then used the laparoscopic scissors to take down most of the adhesions which were thin wispy omentum stuck to the anterior abdominal wall. There was one area that bled from a vessel within the omentum and I controlled this easily with 5 mm clip media services coordinator and it was hemostatic when this was done. After all of the adhesions were taken down, the patient was placed in reverse Trendelenburg and planed towards her left to move the viscera away from the right upper quadrant and the robot was brought in and docked and targeted and the instruments inserted. I scrubbed out and went to the console and then used the hook electrocautery and obtained a wedge of the left portion of the liver on an inferior edge and then this was removed and placed in the formalin and sent to pathology. I then grasped the fundus of the gallbladder, retracted towards the patient's right shoulder and grasped the infundibulum and retracted this towards the patient's right hip to open up the critical view. I used hook electrocautery to divide the peritoneum overlying the infundibulum and went up the needle on all aspects of the gallbladder and then striped this down and used mostly blunt dissection with a little bit of electrocautery to clean off the cystic duct and arteries. I used Firefly throughout this as well to confirm I was at the cystic duct and and well away from the common duct structures. I then after cleaning off the cystic duct and arteries, I clipped the artery proximally and distally and divided between clips and clipped the duct with 3 clips distally but away from the common duct, and one at the infundibulocystic junction, divided the duct between clips. There was a posterior vessel that I cleaned off as well and clipped this proximally and distally and divided between clips. I then divided the posterior tension of the gallbladder it from the gallbladder fossa and placed the gallbladder in a surgical specimen retrieval bag and removed it from the abdomen through the umbilical port site. I irrigated and dried the right upper quadrant and made sure there was no irrigation left in and looked for bile leaks or bleeding and there was no bile leaks or bleeding. I inspected the liver biopsy site once again and there was no bleeding from this either. I inspected the omentum that had bled earlier with the clips on it and there was no bleeding from this either. After this was completed, all the instruments were removed. The robot undocked and all of the ports removed and the abdomen desufflated. The midline fascial defect was closed with another [id number] ) Vicryl suture and then all three of these were tied down with good reapproximation visualizing no remaining fascial defect. The skin incisions were all closed with 4-0 Monocryl subcuticular sutures. The skin was cleaned and dried and because of the patient's adhesive allergy, I used Dermabond to cover all of the incisions. The patient was then awakened and extubated in the operating room and transported to the recovery room in stable condition having tolerated the procedure without any apparent problems. KRISTEL
[2019-01-27] MEDS: ACETAMINOPHEN 325 MG TAB PO PRN ×3 (12:52→20:42)
[2019-01-27] MEDS: traMADol 50 MG TAB PO PRN ×3 (12:52→20:43)
[2019-01-27] MEDS: DOCUSATE SODIUM 100 MG CAP PO SCH (20:43)
[2019-01-28] MEDS: ACETAMINOPHEN 325 MG TAB PO PRN ×3 (00:37→09:04)
[2019-01-28] MEDS: traMADol 50 MG TAB PO PRN ×2 (00:37→05:07)
[2019-01-28 04:10] VITALS: BP 130/80
[2019-01-28 07:02] VITALS: BP 135/84
[2019-01-28] MEDS ORDERED: LOSARTAN POTASSIUM 50 MG TAB PO SCH (09:00)
[2019-01-28] MEDS ORDERED: MULTIVITAMINS TAB PO SCH (09:00)
[2019-01-28] MEDS ORDERED: PANTOPRAZOLE SOD 40 MG TABEC PO SCH (09:00)
[2019-01-28] MEDS ORDERED: ESTRADIOL 1 MG TAB PO SCH (09:00)
[2019-01-28] MEDS: DOCUSATE SODIUM 100 MG CAP PO SCH (09:04)
[2019-01-28] MEDS ORDERED: DOCU-202 PO (09:08)
[2019-01-28] MEDS ORDERED: TRAM-420 PO (09:08)
--- NOTE | 2019-01-28 09:11 | Short(Outpt) Discharge Summary ---
Discharge Summary Reason for Hosp/Final Diag: (1) Biliary colic Status: Chronic Hospital Course & Plan: 01/28/19: POD#1 s/p robotic cholecystectomy and liver biopsy. Doing well. Pain controlled on tramadol. Will d/c to home this morning. (2) Postprandial abdominal bloating Status: Chronic (3) Postprandial abdominal pain in right upper quadrant Status: Chronic (4) Transaminitis Status: Chronic (5) Steatosis of liver Status: Chronic Departure Discharge to: Home, Self Care Discharge Instructions Home Meds Active Scripts Tramadol Hcl (TRAMADOL HCL) 50 Mg Tablet, 1 TAB PO Q4H PRN for PAIN, #20 TAB 0 R efills Prov:JOHANA MADRID MD 01/28/19 Docusate Sodium (DOCUSATE SODIUM) 100 Mg Capsule, 1 CAP PO BID, #30 CAPSULE 0 Refills Prov:JOHANA MADRID MD 01/28/19 Esomeprazole Magnesium (NEXIUM) 40 Mg Capsule.dr, 1 TAB PO QDAY, #60 CAP 0 Refills Take 1 tablet 1/2 hour before breakfast Prov:JOHANA MADRID MD 10/13/17 Reported Medications Estradiol (ESTRACE) 1 Mg Tablet, 1 MG PO DAILY 01/27/19 Multivits,Ca,Minerals/Iron/Fa (WOMEN'S DAILY CAPLET) 1 Each Tablet, 1 EACH PO QDAY 01/19/19 Losartan Potassium (LOSARTAN POTASSIUM) 100 Mg Tablet, 50 MG PO QDAY 11/05/16 Etanercept (ENBREL) 50 Mg/1 Ml Pen.injctr, 50 MG SQ QWEEKF 04/23/16 Discontinued Reported Medications Estradiol (ESTRACE) 0.5 Mg Tablet, 0.1 MG PO QDAY 05/16/14 Follow up Referrals: General Surgery - 02/14/19 @ Surgery, General with JOHANA MADRID MD You have a follow up appointment scheduled with Dr. Madrid on 02/14/19, at 11:00am. Diet: Regular Activity: As Tolerated Special Instructions: You may remove the white surgical dressings on 01/29/19, then you can shower. After showering, leave the incisions open to air but leave the steristrips in place until they fall off on their own. Do not immerse the incisions for 2 weeks. JOHANA MADRID MD Jan 28, 2019:11
== END 2019-01-28 12:15 | disposition home or self-care (01) ==
LOC: OR 00:20 → MED 10:55
PROVIDERS: ADMIT Surgery; ATTEND Surgery
DX: K80.50 Calculus of bile duct without cholangitis or cholecystitis without obstruction (principal); R74.0 Nonspecific elevation of levels of transaminase and lactic acid dehydrogenase [LDH]; I10 Essential (primary) hypertension; R79.89 Other specified abnormal findings of blood chemistry; E78.5 Hyperlipidemia, unspecified; K21.9 Gastro-esophageal reflux disease without esophagitis; R10.11 Right upper quadrant pain; R14.0 Abdominal distension (gaseous); K76.0 Fatty (change of) liver, not elsewhere classified
CPT/HCPCS: 36415; 47100; 47562; 85610; 85730; 88304; 88305; 88313; 96372; G0378; J0295; J1100; J1630; J2001; J2250; J2270; J2405; J2704; J2795; J3010; J3490; J7030; J7050; S2900; Q9967

== ENCOUNTER → 2019-02-22 | Outpatient (CLI) | payer BC ==
[2017-10-23 15:47] VITALS: BMI 33.1
[~2019-02-22] MED LIST changes: +ESTR-35 PO; +TRAM-420 PO
== END ==
LOC: LAB 11:17
PROVIDERS: ATTEND Nurse Practitioner Family
DX: K76.89 Other specified diseases of liver (principal)
CPT/HCPCS: 36415; 82040; 82247; 82310; 82374; 82435; 82565; 82947; 84075; 84132; 84155; 84295; 84450; 84460; 84520

== ENCOUNTER → 2019-03-15 | Outpatient (CLI) | payer BC ==
[2017-10-23 15:47] VITALS: BMI 33.1
== END ==
LOC: LAB 11:38
PROVIDERS: ATTEND Surgery
DX: K76.0 Fatty (change of) liver, not elsewhere classified (principal); R74.0 Nonspecific elevation of levels of transaminase and lactic acid dehydrogenase [LDH]; R10.11 Right upper quadrant pain; K82.8 Other specified diseases of gallbladder
CPT/HCPCS: 36415; 82040; 82247; 82248; 84075; 84155; 84450; 84460